=== PATIENT | male | born 1990 | race Caucasian/White ===

== ENCOUNTER 2016-07-03 20:31 | Emergency (ER) | payer BC ==
--- NOTE | 2016-07-03 20:47 | ER Document Report ---
ED Medical Screen (RME) - General Chief Complaint: Abscess Stated Complaint: ABSCESS Time seen by provider: 20:44 Mode of Arrival: Ambulatory Information source: Patient Notes: 25 yo male presents to ed for abscess to right side of face 2 week got bigger 2 days ago - HPI Onset: Other - see above Onset/Duration: Intermittent Quality of pain: Throbbing Severity: Moderate Pain Level: 3 Associated Symptoms: Other - facial abscess Exacerbated by: Denies Relieved by: Denies Similar symptoms previously: No Recently seen / treated by doctor: No - Related Data Smoking: Non-smoker, Quit greater than 1 year Frequency of alcohol use: Rare Drug Abuse: None Allergies/Adverse Reactions: Penicillins Allergy (Verified 07/03/16 20:44)
--- NOTE | 2016-07-03 21:40 | ER Document Report ---
ED General - General Chief Complaint: Abscess Stated Complaint: ABSCESS Time seen by provider: 21:35 Mode of Arrival: Ambulatory Notes: This is a 25-year-old male that presents today with a two-week history of right lower jaw abscess. He stated that he first noted a small bump while shaving. However over the course of 3 days it rapidly got bigger and more erythematous. Denies any drainage however he states that he has been squeezing it. Denies nausea vomiting fever or chills. He is able to swallow both liquids and solids. Denies shortness of breath. - Related Data Allergies/Adverse Reactions: Penicillins Allergy (Verified 07/03/16 20:44) Past Medical History - General Information source: Patient - Social History Smoking Status: Former Smoker Frequency of alcohol use: Rare Drug Abuse: None Family History: Reviewed & Not Pertinent Patient has suicidal ideation: No Patient has homicidal ideation: No - Immunizations Hx Diphtheria, Pertussis, Tetanus Vaccination: Yes Review of Systems - Review of Systems Constitutional: denies: Chills, Fever EENT: See HPI Cardiovascular: denies: Chest pain Respiratory: denies: Cough, Short of breath Gastrointestinal: denies: Abdominal pain, Nausea Genitourinary: No symptoms reported Musculoskeletal: No symptoms reported Skin: See HPI Hematologic/Lymphatic: No symptoms reported Neurological/Psychological: No symptoms reported Physical Exam - Vital signs Vitals: Temp Pulse Resp BP Pulse Ox 98.3 F 73 16 134/82 H 98 07/03/16 20:50 07/03/16 20:50 07/03/16 20:50 07/03/16 20:50 07/03/16 20:50 - General General appearance: Appears well In distress: None - HEENT Head: Normocephalic, Atraumatic, Tenderness - Tenderness to palpation to the right lower jaw there is a 2 x 1.2 cm erythematous abscess. Hard to palpation. No area of fluctuance or pus. Eyes: Normal Conjunctiva: Normal - Respiratory Respiratory status: No respiratory distress Breath sounds: Normal. No: Rales, Rhonchi, Stridor, Wheezing - Cardiovascular Rhythm: Regular Heart sounds: Normal auscultation - Abdominal Inspection: Normal Tenderness: Nontender - Extremities General upper extremity: Normal inspection General lower extremity: Normal inspection - Neurological Cognition: Normal. No: Confused - Psychological Associated symptoms: Normal affect, Normal mood - Skin Skin Temperature: Warm Skin Moisture: Dry Skin Color: Normal Course - Re-evaluation Re-evalutation: 07/03/16 21:40 Patient stated that he understood discharge instructions. He stated that he would follow-up with primary care physician. I advised him to take the antibiotics as prescribed and to return to the emergency department if any worsening signs of infection occured. - Vital Signs Vital signs: Temp Pulse Resp BP Pulse Ox 98.2 F 77 15 125/74 99 07/03/16 21:45 07/03/16 21:45 07/03/16 21:45 07/03/16 21:45 07/03/16 21:45 Discharge - Discharge Clinical Impression: Abscess Condition: Stable Disposition: HOME, SELF-CARE Additional Instructions: Follow-up with primary care physician as soon as possible. Return to the emergency department if symptoms worsen such as pus, drainage, inability to close or open mouth,etc. Abscess You have an abscess (boil). This a pus-forming infection, usually due to staph. Some boils may be left to drain on their own, but most require lancing. From the time the tender lump first appears, it may be three or four days before the abscess is ready to val. Local heat and rest help at this stage of treatment. An antibiotic may prevent spread of the infection. Once the abscess is opened, packing may be placed into it. This is done so pus is not sealed inside by premature closure of the cavity. The packing will be removed at your follow-up visit or you may be advised to remove it yourself at home. Sometimes this packing must be replaced a few times during healing. The wound will heal with surprisingly little scar. Depending on the size and location of an abscess, healing can take one to four weeks. You may shower and wash the area around the incision site two or three times a day. Antibiotics may be prescribed, but are usually not necessary after an abscess has been drained. If you develop fever, chilling, worsening pain, or increasing swelling in the area, call the doctor or return immediately. Prescriptions: Sulfamethoxazole/Trimethoprim [Bactrim Ds Tablet] 1 each PO BID #14 tablet Referrals: [facility] [Provider Group] - Follow up as needed
[2016-07-03 22:46] VITALS: BP 125/74
== END 2016-07-03 21:50 | disposition home or self-care (01) ==
LOC: ER 20:31
DX: L02.01 Cutaneous abscess of face (principal); Z88.0 Allergy status to penicillin; Z87.891 Personal history of nicotine dependence
CPT/HCPCS: 99282